=== PATIENT | male | born 1960 | race Caucasian/White ===

== ENCOUNTER 2016-07-07 01:44 | Observation (INO) | payer OTHER ==
[~2016-07-07] VITALS: Ht 167.6 cm; Wt 78.8 kg
--- NOTE | ~2016-07-07 | HP ---
PATIENT'S NAME: KIAN CASTELAN [facility] AGE: 56 Y [address] ROOM: [place] [id number] LOCATION: GPCU ADMIT DATE: 07/07/2016 History & Physical DISCHARGE DATE: FAMILY PHYSICIAN: Josias Guerrero MD ATTENDING PHYSICIAN: Baltazar Gambino DATE OF SERVICE: CHIEF COMPLAINT: Syncope in the setting of acute gastroenteritis. HISTORY OF PRESENTING ILLNESS: This 56-year-old white male with previous history of hypertension, asthma, and GERD was brought to the emergency department this morning after a couple of syncopal episodes, which occurred at home last evening. He had been feeling well until yesterday afternoon when he developed some generalized abdominal distress and nausea. This progressed over the course of the evening to shala vomiting and diarrhea. He had multiple episodes of vomiting and diarrhea and multiple trips to the bathroom. On one occasion, he vomited in the bathroom sink and subsequently became dizzy and lightheaded, fell backwards and struck his head against the wall. His noted that he was unresponsive for a few seconds and that is "eyes rolled back." She called EMS services, but he initially refused to come to the emergency room. After the second episode, he agreed to come in for evaluation. On his arrival to the floor, he complains of feeling weak, he is not as nauseated as he had been. He denies shala chest pain, but does have some upper abdominal distress. It is actually improved. He has occasional cough and congestion, but reports this is a chronic problem. No shala abdominal pain. Stools have been loose and watery and he has not noticed any blood in his stools or black tarry stools. He did have some blood-tinged mucus in his emesis however. He denies body rash. No numbness, tingling, or weakness in his extremities. Several family members also reported becoming ill over the course of the evening last night. PAST MEDICAL HISTORY: ALLERGIES: PENICILLIN. ILLNESSES: 1. Hypertension. PATIENT'S NAME: KIAN CASTELAN [facility] AGE: 56 Y [address] ROOM: [place] [address] LOCATION: GPCU ADMIT DATE: 07/07/2016 History & Physical DISCHARGE DATE: FAMILY PHYSICIAN: Josias Guerrero MD ATTENDING PHYSICIAN: Baltazar Gambino 2. Asthma, moderate persistent. 3. Gastroesophageal reflux disease. 4. Throat tumor, status post resection. CURRENT MEDICATIONS: 1. Cetirizine 10 mg p.o. daily. 2. Chlorthalidone 25 mg p.o. at bedtime. 3. Metoprolol 50 mg p.o. at bedtime. 4. Singulair 10 mg p.o. daily. 5. Omeprazole 20 mg p.o. daily. FAMILY HISTORY: Significant for coronary artery disease in his father. His father had stents and a permanent pacemaker. Mother, otherwise, healthy. SOCIAL HISTORY: He is and lives here in [place]. He is a nonsmoker. There is no significant history of alcohol use. He is self-employed in construction. REVIEW OF SYSTEMS: As per HPI. All other organ systems reviewed and are negative. OBJECTIVELY: VITAL SIGNS: Temperature 96.8, pulse 99, respirations 36, blood pressure 132/94, O2 saturation 100% on room air. GENERAL: He is frail and mildly ill-appearing, in no acute distress. SKIN: Supple. George, warm, and dry. No obvious rashes. HEENT: Otherwise, normocephalic. Sclerae nonicteric with mildly injected. Pupils are equal, round, and reactive to light and accommodation. Extraocular movements appear intact. Nasal turbinates normal in appearance. Oropharynx clear. Mucous membranes are pink and moist. NECK: Supple. No masses or adenopathy. No thyromegaly. No JVD. No carotid bruits are heard. CHEST: Chest wall is symmetrical. HEART: Regular without murmurs. LUNGS: Diminished, but clear. No crackles or wheezes are heard. ABDOMEN: Soft and protuberant, diffusely tender. There is guarding, but no rebound. No masses or hepatosplenomegaly. and RECTAL: Not done. EXTREMITIES: Display no significant clubbing, cyanosis, or edema. NEUROLOGICAL: Nonfocal. LABORATORY AND X-RAY DATA: CBC showed a white blood cell count elevated at 22.2, hemoglobin is 17.0, hematocrit 47.4, platelets 383. Chemistries revealed BUN and creatinine 24 and 1.1 respectively, sodium and potassium 141 and 3.5, chloride and CO2 are PATIENT'S NAME: KNAGGKIAN Durham [facility] AGE: 56 Y [address] ROOM: [id number] [place], [place] [address] LOCATION: GPCU ADMIT DATE: 07/07/2016 History & Physical DISCHARGE DATE: FAMILY PHYSICIAN: Josias Guerrero MD ATTENDING PHYSICIAN: Baltazar Gambino 107 and 19, calcium was 10.0, AST and ALT 36 and 49, bilirubin 0.7, magnesium was 1.9, glucose was a little elevated at 186. PT and PTT are 9.9 and 24 respectively with an INR 0.94. Amylase and lipase were 38 and 110. Serum ethanol was negative. Cardiac enzymes revealed a troponin I less than 0.04 x2. CK-MB was minimally elevated at 5.4 and did increase to 7.7. Procalcitonin was elevated at 0.12. Lactate was elevated at 3.1. CT scan of the head and neck were negative. ASSESSMENT AND PLAN: 1. Syncope x2, suspect vasovagal events. We will admit to observation and continue with some supportive cares and clinical monitoring. Continue with IV fluids and watch his blood pressures serially over the course of the day. We will gradually increase his activity and consider checking orthostatic blood pressures, if he is persistently symptomatic. 2. Systemic inflammatory response syndrome. Suspect a viral gastroenteritis. Cannot rule out the possibility of a foodborne pathogen, given that other family members also became ill. Symptoms seemed to be improving now. Continue with IV fluids. Symptomatic relief of nausea with Zofran and consider further evaluation including abdominal imaging, if symptoms persist or do not improve. 3. Atypical chest pain, secondary to vomiting. My suspicion for acute coronary syndrome is relatively low. He did have a negative stress test a couple of years ago. We will monitor on telemetry and trend cardiac enzymes. Consider additional cardiac workup. 4. Hypertension, adequately controlled. We will continue with his home medical regimen. 5. Hypokalemia, mild replace once he is tolerating p.o. 6. Asthma, moderate persistent. Continue with his home regimen of Singulair and Zyrtec. Encourage good pulmonary hygiene. 7. Deep venous thrombosis prophylaxis. We will use low-dose Lovenox while he is inpatient. MD ABUNDIO MCDERMOTT/modl /[id number] D: [id number] T: [id number] HISTORY & PHYSICAL
--- NOTE | ~2016-07-07 | DS ---
PATIENT'S NAME: KIAN CASTELAN [facility] AGE: 56 Y [address] ROOM: [place] [address] LOCATION: GPCU ADMIT DATE: 07/07/2016 Discharge Summary DISCHARGE DATE: 07/08/2016 FAMILY PHYSICIAN: Josias Guerrero MD ATTENDING PHYSICIAN: Baltazar Gambino PRINCIPAL DIAGNOSES: 1. Syncope secondary to hypovolemia. 2. Acute viral gastroenteritis. 3. Hypokalemia. BRIEF HOSPITAL COURSE: The patient presented with a 1-day history of intractable nausea, vomiting, and a syncopal episode in relation to his dehydration from his acute gastroenteritis. The patient was given treatment including aggressive IV fluid resuscitation and electrolyte replacement. The patient had a white blood cell count of greater than 20,000 at presentation, but that number has gone down to 8000 today, and the patient feels significantly better. He has not had nausea, vomiting, or diarrhea since last night. He is tolerating p.o. intake very well as well. The patient currently is in stable condition to be discharged. Of note, the patient's potassium was 2.9 today, and that is replaced with p.o. and IV, and his last potassium is 3.3. I will discharge the patient on p.o. potassium replacement, and he is to follow up with his primary care physician, and get a repeat renal panel done to follow up on potassium within a week. The patient is being discharged in stable condition. PHYSICAL EXAMINATION: GENERAL: The patient is awake, alert, oriented x3, in no acute distress. CHEST: Clear to auscultation bilaterally. HEART: S1, S2. Regular rate and rhythm. ABDOMEN: Soft, nontender, nondistended. EXTREMITIES: Without edema. NEURO: Grossly nonfocal. MEDICATIONS: Per MAY. DISPOSITION: Home. FOLLOWUP: He will follow up with PCP within 1 week. ANNA RAMIREZ MD PATIENT'S NAME: KIAN CASTELAN [facility] AGE: 56 Y [address] ROOM: [place] [address] LOCATION: GPCU ADMIT DATE: 07/07/2016 Discharge Summary DISCHARGE DATE: 07/08/2016 FAMILY PHYSICIAN: Josias Guerrero MD ATTENDING PHYSICIAN: Baltazar Gambino/janny /[id number] d: 07/09/16 0333 t: 07/14/16 1419, DISCHARGE SUMMARY
--- NOTE | ~2016-07-07 | ER ---
PATIENT'S NAME: KIAN CASTELAN [facility] AGE: 56 Y [address] ROOM: [place] [address] LOCATION: [facility] ADMIT DATE: 07/07/2016 ER/Outpatient Report DISCHARGE DATE: FAMILY PHYSICIAN: Josias Guerrero MD ATTENDING PHYSICIAN: Mathew Chiang Admission date and time were documented on the medical record. I saw the patient at 0155 hours. CHIEF COMPLAINT: Nausea, vomiting, and diarrhea with two syncopal episodes. HISTORY OF PRESENT ILLNESS: The patient is a 56-year-old male, who presented to the Emergency Room by a private vehicle for evaluation. The patient had onset of nausea, vomiting, and diarrhea about 3 or 4 hours prior to admission to the Emergency Room. He had two syncopal episodes. In the first episode, he hit his head, and suffered abrasion to the top of his head and to his nose. On arrival here to the Emergency Room, the patient was awake and responsive. He was very nauseated and did vomit here in the Emergency Department. No headache; eyes, ears, nose, or throat pain. He does have some neck pain, but no spine pain. No chest pain or shortness of breath. No abdominal pain, but was having multiple episodes of nausea and vomiting and diarrhea. No urinary symptoms. No joint or muscle swelling, redness, or pain. No skin eruptions or rash. No blood in his vomitus or diarrhea. No fever, chills, or sweats. A little lightheaded and dizzy. No history of stroke, TIA, or seizure disorder. No endocrine problems. No psych issues. HOME MEDICATIONS: See attached medication list. ALLERGIES: PENICILLIN. SOCIAL HISTORY: Nonsmoker. Occasional intake of alcohol. SIGNIFICANT PAST MEDICAL HISTORY: 1. Hypertension. 2. Gastroesophageal reflux. OPERATIONS: Some type of tumor removed from his throat. REVIEW OF SYSTEMS: PATIENT'S NAME: KIAN CASTELAN [facility] AGE: 56 Y [address] ROOM: [place] [address] LOCATION: [facility] ADMIT DATE: 07/07/2016 ER/Outpatient Report DISCHARGE DATE: FAMILY PHYSICIAN: Josias Guerrero MD ATTENDING PHYSICIAN: Mathew Chiang All systems reviewed by me are negative with the exception of those discussed in the history of the present illness. PHYSICAL EXAMINATION: VITAL SIGNS: Temperature was 96.8 tympanic, pulse was 79, respirations were 36, blood pressure was 132/94, and O2 saturation on room air was 100%. HEENT: Head: Normocephalic. Eyes: Clear. Ears: Clear TMs bilaterally. Nose and Throat: Clear. Mucous membranes were moist. NECK: Negative. SPINE: Negative. LUNGS: Clear. No rales, rhonchi, or wheezes. HEART: Regular. Pulses are palpable. No chest wall or ribcage pain to palpation. ABDOMEN: Soft. Some mid upper abdominal pain. No true guarding or rigidity. No rebound tenderness. No distention. No palpable masses. No organomegaly. No CVA tenderness. EXTREMITIES: Without peripheral edema, cyanosis, or deformity. He moves all four extremities. NEUROLOGIC: Cranial nerves were intact. No lateralizing signs. The patient is awake, alert, and cooperative. Motor and sensory were intact. VASCULAR: Intact. SKIN: Clear. DIAGNOSTIC STUDIES: EKG showed some anterior lateral ST-T wave changes suggestive of ischemia. No acute ST elevation or arrhythmia. Three abdominal x-rays showed no acute infiltrate, perforation, or obstruction. We will review x-ray with the radiologist. LABORATORY DATA: White count was 22,200, 90 segs, 3 lymphs, 6 monos, hemoglobin was 17 with hematocrit of 47.4, and platelet count was 383,000. PTT was 24 and pro-time was 9.9 with an INR of 0.94. CMS was normal except for a slightly low potassium of 3.5, low CO2 content of 19, elevated glucose of 186, magnesium was 1.9, and medical blood alcohol was less than 0.01. Amylase and lipase were normal. CPK x2 two hours apart were normal. CK-MB was initially elevated at 5.4. Two-hour CK-MB was 7.7. Troponin I was less than 0.4 x2 two hours apart. CRP was less than 0.29. Thyroid tests were normal. H. pylori was negative. EMERGENCY DEPARTMENT COURSE: I did give the patient IV normal saline and IV Zofran for nausea and vomiting. I did IV Reglan 10 mg and 40 mg Protonix IV in the Emergency Room. The patient did settle down. He never did have any chest pain or shortness of breath. PATIENT'S NAME: KIAN CASTELAN [facility] AGE: 56 Y [address] ROOM: [place] [address] LOCATION: [facility] ADMIT DATE: 07/07/2016 ER/Outpatient Report DISCHARGE DATE: FAMILY PHYSICIAN: Josias Guerrero MD ATTENDING PHYSICIAN: Mathew Chiang A CT scan of his head showed no intracranial bleed, midline shift, mass effect, or skull fracture. CT scan of the cervical spine showed degenerative changes and some mild cervical spinal stenosis, but no acute fracture or subluxation. All CT scans were read by Radiology, see dictated transcribed report. IMPRESSION: 1. Elevated CK-MB with anterolateral ischemic changes. Need to rule out myocardial infarction, [id number] myocardial infarction. 2. Syncopal episode x2. 3. Nausea, vomiting, and diarrhea with some mid upper abdominal pain. 4. Hyperventilation. 5. Hypertension. PLAN: Discussed the patient with Dr. Gambino, hospitalist. We will admit the patient to PCU Telemetry for further evaluation and treatment. Discussion was ensued with the patient concerning my findings and recommendations, he understands. MD TYLER PADGETT/modl /[id number] d: 07/07/16 0600 t: 07/07/16 1815, OUTPATIENT REPORT
[2016-07-07 02:25] LABS: LACTATE 3.1 mEq/L (0.50-1.60)
[2016-07-07 02:27] LABS: BASOPHIL # 0.1 K/uL (0.0-0.2); BASOPHIL % 0.3 %; EOSINOPHIL # 0.1 K/uL (0.0-0.5); EOSINOPHIL % 0.4 %; HEMATOCRIT 47.4 % (37.0-53.0); IMMATURE GRANULOCYTE # 0.1 K/uL (0.0-0.3); IMMATURE GRANULOCYTE % 0.4 %; LYMPHOCYTE # 0.7 K/uL (0.8-4.0); LYMPHOCYTE % 3.3 %; MCH 31.4 pg (27.0-34.0); MCHC 35.9 gm/dL (32.0-36.5); MCV 87.5 fl (83.0-98.0); MONOCYTE # 1.3 K/uL (0.0-1.0); MONOCYTE % 5.8 %; MPV 9.1 fl (9.4-12.4); NEUTROPHIL # (ANC) 19.9 K/uL (1.4-9.0); NEUTROPHIL % 89.8 %; NRBC % 0 /100WBC (0-0.00); PLATELET COUNT 383 K/uL (150-450); RBC 5.42 M/uL (4.00-6.00); RDW-CV 12.7 % (11.9-14.6); WBC 22.2 K/uL (4.0-11.0)
[2016-07-07 02:34] LABS: INR - (THERAPEUTIC) 0.94 (0.92-1.07); PROTIME 9.9 SECONDS (9.8-11.4); PTT 24 SECONDS (25-32)
[2016-07-07 02:48] LABS: ALBUMIN 4.5 gm/dL (3.5-5.0); ALK PHOS 90 IU/L (33-138); ALT 49 IU/L (12-78); ANION GAP 18.5 (10.0-19.0); AST 36 IU/L (10-40); BLOOD UREA NITROGEN 24 mg/dL (6-24); CHLORIDE 107 mMol/L (96-110); CO2 19 mMol/L (22-32); CPK 288 IU/L (35-332); CREATININE 1.1 mg/dL (0.6-1.3); ESTIMATED GFR (MDRD EQUATION) > 60; MAGNESIUM 1.9 mg/dL (1.3-2.6); POTASSIUM 3.5 mMol/L (3.7-5.1); SODIUM 141 mMol/L (135-145); TOTAL BILIRUBIN 0.7 mg/dL (0.0-1.5); TOTAL PROTEIN 8.7 g/dL (6.0-8.4)
[2016-07-07 04:38] LABS: CPK 300 IU/L (35-332)
[2016-07-07] MEDS ORDERED: SINGULAIR10 MG PO (06:25)
[2016-07-07] MEDS ORDERED: PRILOSEC20 MG PO (06:27)
[2016-07-07] MEDS ORDERED: ZYRTEC10 M3 PO (06:28)
[2016-07-07] MEDS ORDERED: TOPROL XL 5050 MG PO (06:29)
[2016-07-07] MEDS ORDERED: HYGROTON25 MG PO (06:30)
[2016-07-07 10:59] LABS: CPK 311 IU/L (35-332)
[2016-07-07 16:49] LABS: CPK 291 IU/L (35-332)
[2016-07-08 05:53] LABS: BASOPHIL % 0.3 %; EOSINOPHIL # 0.1 K/uL (0.0-0.5); EOSINOPHIL % 1.5 %; HEMOGLOBIN 12.8 g/dL (12.0-17.0); IMMATURE GRANULOCYTE % 0.2 %; LYMPHOCYTE # 1.5 K/uL (0.8-4.0); LYMPHOCYTE % 16.4 %; MCV 90.3 fl (83.0-98.0); MONOCYTE # 0.9 K/uL (0.0-1.0); MONOCYTE % 9.7 %; MPV 9.1 fl (9.4-12.4); NEUTROPHIL # (ANC) 6.4 K/uL (1.4-9.0); NEUTROPHIL % 71.9 %; NRBC % 0 /100WBC (0-0.00); RBC 4.13 M/uL (4.00-6.00); RDW-CV 13.1 % (11.9-14.6)
[2016-07-08 05:54] LABS: HEMATOCRIT 37.3 % (37.0-53.0); MCHC 34.3 gm/dL (32.0-36.5); PLATELET COUNT 263 K/uL (150-450)
[2016-07-08 06:10] LABS: BILIRUBIN URINE NEGATIVE (NEGATIVE); BLOOD URINE 50 /UL (NEGATIVE); COLOR URINE YELLOW (YELLOW); GLUCOSE URINE NEGATIVE (NEGATIVE); KETONE URINE NEGATIVE (NEGATIVE); LEUKOCYTES URINE NEGATIVE /UL (NEGATIVE); NITRITE URINE NEGATIVE (NEGATIVE); PROTEIN URINE NEGATIVE (NEGATIVE); SPEC GRAVITY URINE 1.015 (1.003-1.035); TURBIDITY URINE CLEAR (CLEAR); UROBILINOGEN URINE NORMAL (NORMAL)
[2016-07-08 06:16] LABS: ALK PHOS 66 IU/L (33-138); ALT 36 IU/L (12-78); AST 30 IU/L (10-40); BLOOD UREA NITROGEN 14 mg/dL (6-24); CALCIUM 7.5 mg/dL (8.5-10.5); CHLORIDE 106 mMol/L (96-110); CO2 29 mMol/L (22-32); CREATININE 0.9 mg/dL (0.6-1.3); ESTIMATED GFR (MDRD EQUATION) > 60; SODIUM 141 mMol/L (135-145); TOTAL PROTEIN 6.1 g/dL (6.0-8.4)
[2016-07-08 06:17] LABS: ANION GAP 8.9 (10.0-19.0); POTASSIUM 2.9 mMol/L (3.7-5.1); TOTAL BILIRUBIN 0.9 mg/dL (0.0-1.5)
[2016-07-08 06:33] LABS: EPITHELIAL URINE NEGATIVE #/HPF (NEGATIVE); RBC URINE 0-2 #/HPF (NEGATIVE); WBC URINE NEGATIVE #/HPF (NEGATIVE)
[2016-07-08 06:34] LABS: BACTERIA URINE NEGATIVE (NEGATIVE)
[2016-07-08] MEDS ORDERED: TYLENOL325 MG PO (16:04)
[2016-07-08] MEDS ORDERED: K-TAB 10MEQ10 MEQ PO (16:05)
== END 2016-07-08 18:23 | disposition disaster alternative care site (69) ==
LOC: GMED 01:44 → GPCU 05:25
PROVIDERS: Emergency Medicine; ADMIT Family Medicine
DX: R55 Syncope and collapse (principal); A08.4 Viral intestinal infection, unspecified; E87.6 Hypokalemia; E86.1 Hypovolemia; I25.2 Old myocardial infarction; I10 Essential (primary) hypertension; J45.40 Moderate persistent asthma, uncomplicated; R07.89 Other chest pain; K21.9 Gastro-esophageal reflux disease without esophagitis; Z88.0 Allergy status to penicillin; Z79.899 Other long term (current) drug therapy
CPT/HCPCS: C9113; G0480; J1650; J2405; J2765; J3480; J7030

== ENCOUNTER → 2016-10-23 | Outpatient (CLI) | payer OTHER ==
[~2016-10-23] MED LIST: HYGROTON25 MG PO; K-TAB 10MEQ10 MEQ PO; PRILOSEC20 MG PO; SINGULAIR10 MG PO; TOPROL XL 5050 MG PO; TYLENOL325 MG PO; ZYRTEC10 M3 PO
--- NOTE | ~2016-10-23 | PUL ---
PATIENT'S NAME: KIAN CASTELAN [facility] AGE: 56 Y [address] ROOM: [place] [address] LOCATION: [facility] ADMIT DATE: 10/23/2016 Pulmonary DISCHARGE DATE: FAMILY PHYSICIAN: Josias Guerrero MD ATTENDING PHYSICIAN: VIKASH DILL NAME OF PROCEDURE: Home sleep test DATE OF PROCEDURE: 10/23/16 TECH: Tara Liang [facility] SUMMARY: The patient underwent home sleep testing using a type III device and was studied for 8 hours 18 minutes. In that time there were 10 obstructive apneas and 41 hypopneas for an apnea/hypopnea index mildly elevated at 6.1 events per hour. The supine AHI was 8.3 events per hour. The non supine AHI was less than 5 events per hour. Oxygen saturations ranged from 87-93%. Heart rate ranged from 39 to 66 beats per minute. IMPRESSION: Mild essentially positional obstructive sleep apnea. PLAN: Patient will receive results from the ordering provider. MD JOSESITO LIN/ /[id number] dtt: 11/07/16 0948 Carl David E. dtd: 10/28/16 1606
== END | disposition disaster alternative care site (69) ==
LOC: GSLP 10-20 11:10
DX: G47.19 Other hypersomnia (principal); G47.33 Obstructive sleep apnea (adult) (pediatric)
CPT/HCPCS: G0399

== ENCOUNTER → 2016-11-07 | Outpatient (CLI) | payer OTHER | END | disposition disaster alternative care site (69) | LOC: GRAD 11-06 11:00 | DX: R05 Cough (principal); I25.10 Atherosclerotic heart disease of native coronary artery without angina pectoris ==